=== PATIENT | female | born 1965 | race Caucasian/White ===

== ENCOUNTER 2018-01-18 16:37 | Emergency (ER) | payer OTHER ==
[2018-01-18 16:52] VITALS: RESP 18
[2018-01-18] MEDS ORDERED: ACETAMINOPHEN TAB 500 MG TAB PO STA (17:08)
--- NOTE | 2018-01-18 17:16 | ED ---
Lower Extremity Injury HPI - General Source: patient, RN notes reviewed Mode of arrival: wheelchair Limitations: no limitations <Juliet Hdz - Last Filed: 01/18/18 18:44> <Leslie Brown - Last Filed: 01/18/18 20:27> - General Chief Complaint: Extremity Injury, Lower Stated Complaint: lt knee/leg injury Time Seen by Provider: 01/18/18 17:00 - History of Present Illness Initial Comments: This is a 52-year-old female who presents to the emergency department with chief complaint of work-related left leg injury. Patient states that at 12:50 this afternoon she was helping a consumer at work onto the toilet. She states that a coworker had previously helped showered another consumer and the floor was still wet. She states that she slipped and landed on her left side, her full weight on her left leg. She states that she was initially unable to get up off the floor as her leg felt numb. She states that she was then able to crawl to the hallway and got up using a wheelchair. She states that she has been able to bear weight and ambulate but with difficulty. She complains of pain to the lateral left knee, lateral ankle and top of the foot. Denies any other injuries or trauma. Denies head, neck or back pain. Denies recent fevers or chills, chest pain or shortness of breath, abdominal pain, nausea or vomiting. (Juliet Hdz) - Related Data Allergies Allergy/AdvReac Type Severity Reaction Status Date / Time codeine Allergy Unknown Verified 01/18/18 16:47 latex Allergy Unknown Verified 01/18/18 16:47 lisinopril Allergy Unknown Verified 01/18/18 16:47 metronidazole [From Flagyl] Allergy Unknown Verified 01/18/18 16:47 Penicillins Allergy Unknown Verified 01/18/18 16:47 prednisone Allergy Unknown Verified 01/18/18 16:47 Tetracyclines Allergy Unknown Verified 01/18/18 16:47 Review of Systems ROS Other: All systems not noted in ROS Statement are negative. <Juliet Hdz - Last Filed: 01/18/18 18:44> ROS Other: All systems not noted in ROS Statement are negative. <Leslie Brown - Last Filed: 01/18/18 20:27> ROS Statement: Those systems with pertinent positive or pertinent negative responses have been documented in the HPI. Past Medical History Past Medical History: Diabetes Mellitus History of Any Multi-Drug Resistant Organisms: None Reported Past Surgical History: Adenoidectomy, Appendectomy, Hysterectomy, Tonsillectomy Additional Past Surgical History / Comment(s): rectal abscess with surgical repair Past Psychological History: No Psychological Hx Reported Smoking Status: Current every day smoker Past Alcohol Use History: None Reported Past Drug Use History: None Reported <Juliet Hdz - Last Filed: 01/18/18 18:44> General Exam Limitations: no limitations <Juliet Hdz - Last Filed: 01/18/18 18:44> <Leslie Brown - Last Filed: 01/18/18 20:27> - General Exam Comments Initial Comments: General: Awake and alert, well-developed; in no apparent distress. HEENT: Head atraumatic, normocephalic. Pupils are equal, round and reactive to light. Extraocular movements intact. Oropharynx moist without erythema or exudate. Neck: Supple. Normal ROM. Cardiovascular: Regular rate and rhythm. No murmurs, rubs or gallops. Chest symmetrical. Respiratory: Lungs clear to auscultation bilaterally. No wheezes, rales or rhonchi. Normal respiratory effort with no use of accessory muscles. Musculoskeletal: Normal range of motion of the left knee, left ankle and foot. There is contusion and small abrasion at the medial aspect of the left knee. Tenderness at the lateral joint line. No significant joint swelling. There is mild, diffuse soft tissue swelling of the left ankle with tenderness at the lateral malleolus. No medial malleolar tenderness. No tenderness on palpation of the lower leg. There is tenderness on palpation of the proximal dorsal left foot. Sensation is intact. Pedal pulses are 2+ equal and palpable bilaterally. Skin: [place], warm and dry. Neurological: Alert and oriented x3. CN II-XII grossly intact. Speech is fluent and answers are appropriate. No focal neuro deficits. Psychiatric: Normal mood and affect. No overt signs of depression or anxiety noted. (Juliet Hdz) Vital Signs 01/18/18 01/18/18 16:47 18:45 Temperature 98.4 F 98.6 F Pulse Rate 102 H 63 Respiratory 18 18 Rate Blood Pressure 143/90 168/76 O2 Sat by Pulse 100 98 Oximetry Procedures - Orthopedic Splinting/Casting Injury #1 Side: left Lower Extremity Injury Location: short leg, ankle Lower Extremity Immobilizer: posterior splint, stirrup splint, synthetic pre- padded splint <Juliet Hdz - Last Filed: 01/18/18 18:44> Medical Decision Making - Radiology Data Radiology results: report reviewed, image reviewed <Juliet Hdz - Last Filed: 01/18/18 18:44> <Leslie Brown - Last Filed: 01/18/18 20:27> - Medical Decision Making This is a 52-year-old female who presents to the emergency department with chief complaint of left lower extremity injury. Patient slipped on water and landed onto the side of her left leg at work earlier this afternoon at 12:50. Patient has been able to bear weight but ambulates with difficulty. Patient complains of pain to the left knee, left ankle and top of the left foot. X-ray of the left foot and left knee reveal no acute abnormalities. X-ray of the left ankle revealed a nondisplaced oblique fracture of the distal fibula. Short leg OCL posterior and ankle stirrup splints were placed and patient tolerated well without complication. She is neurovascularly intact. Patient declined any pain medication stronger than Tylenol or Motrin. Patient states that she does have a walker at home that she will use. Recommended non- weightbearing. Recommended following up with orthopedics within 1-2 days. Recommended rest, ice, elevation. Vital signs are stable and patient is in no acute distress. She will be discharged home at this time. All questions were answered. Patient is in agreement with plan and voices understanding. (Juliet Hdz) The patient was seen and evaluated independently by the PA. I was not asked to evaluate this patient. I did review the PA evaluation and management and agree with the treatment plan as documented. (Leslie Brown) - Radiology Data X-ray left foot impression: No acute abnormality of the left foot. X-ray left knee impression: Negative left knee exam. X-ray left ankle impression: Nondisplaced oblique fracture distal fibula. (Juliet Hdz) Disposition Is patient prescribed a controlled substance at d/c from ED?: No Time of Disposition: 18:48 <Juliet Hdz M - Last Filed: 01/18/18 18:44> <Leslie Brown P - Last Filed: 01/18/18 20:27> Clinical Impression: Fracture of distal end of left fibula, Knee contusion Disposition: HOME SELF-CARE Condition: Good Instructions: Ankle Fracture (ED), Knee Pain (ED) Additional Instructions: Please follow-up with Dr. Mccormack, [facility] within 1-2 days. Please remain non-weightbearing. Please rest, ice and elevate. Please follow up with primary care provider within 1-2 days. Return to emergency department if symptoms should worsen or any concerns arise. Referrals: Gab Nelson MD [Primary Care Provider] - 1-2 days Julio Mccormack MD [STAFF PHYSICIAN] - 1-2 days
--- NOTE | 2018-01-18 18:22 | XR ---
EXAMINATION TYPE: XR foot complete LT DATE OF EXAM: 01/18/2018 COMPARISON: NONE HISTORY: Pain and swelling TECHNIQUE: 3 views FINDINGS: Metatarsals appear intact. There are plantar and Achilles calcaneal spurs. I see no fractur e nor dislocation. IMPRESSION: No acute abnormality of the left foot.
--- NOTE | 2018-01-18 18:24 | XR ---
EXAMINATION TYPE: XR ankle complete LT DATE OF EXAM: 01/18/2018 COMPARISON: NONE HISTORY: Pain TECHNIQUE: 3 views FINDINGS: There is soft tissue swelling over the lateral malleolus. There is nondisplaced oblique fra cture of the distal fibula. Ankle mortise is anatomic. IMPRESSION: Nondisplaced oblique fracture distal fibula.
--- NOTE | 2018-01-18 18:24 | XR ---
EXAMINATION TYPE: XR knee complete LT DATE OF EXAM: 01/18/2018 COMPARISON: NONE HISTORY: Knee pain TECHNIQUE: 3 views FINDINGS: I see no fracture nor dislocation. Joint spaces are fairly normal. IMPRESSION: Negative left knee exam
[2018-01-18 19:12] VITALS: BP 168/76; PULSE 63; TEMP 98.6
== END 2018-01-18 19:00 | disposition home or self-care (01) ==
LOC: EC 16:37
DX: S82.832A Other fracture of upper and lower end of left fibula, initial encounter for closed fracture (principal); S80.02XA Contusion of left knee, initial encounter; F17.200 Nicotine dependence, unspecified, uncomplicated; Z88.0 Allergy status to penicillin; Z88.1 Allergy status to other antibiotic agents; Z88.5 Allergy status to narcotic agent; Z88.8 Allergy status to other drugs, medicaments and biological substances; Z91.040 Latex allergy status; W01.0XXA Fall on same level from slipping, tripping and stumbling without subsequent striking against object, initial encounter; Y93.89 Activity, other specified; Y92.69 Other specified industrial and construction area as the place of occurrence of the external cause; Y99.0 Civilian activity done for income or pay
CPT/HCPCS: 29515; 99283

== ENCOUNTER → 2018-10-20 | Day surgery (SDC) | payer OTHER ==
[2018-10-14 11:42] VITALS: BMI 34.7
--- NOTE | 2018-10-19 09:31 | HP ---
HISTORY AND PHYSICAL CHIEF COMPLAINT: Left knee pain. HISTORY OF PRESENT ILLNESS: The patient is a 53-year-old female who presents with left knee pain after initial injury January 18, 2018. She has had persistent pain along with giving way ever since. Currently she is off work. PAST MEDICAL HISTORY: Significant for type 2 diabetes, hypercholesterolemia, and hypertension. PAST SURGICAL HISTORY: Significant for hysterectomy, tonsillectomy and adenoidectomy. CURRENT MEDICATIONS: 1. Crestor. 2. Losartan. 3. Soliqua along with Ozempic. ALLERGIES: She has allergies to TETRACYCLINES, PENICILLIN, PREDNISONE, FLAGYL, LATEX, and CODEINE. FAMILY HISTORY: Significant for heart disease and stroke. SOCIAL HISTORY: Significant for 1 pack per day tobacco use. REVIEW OF SYSTEMS: Sixteen-point review of systems otherwise reviewed and is noncontributory. PHYSICAL EXAMINATION: On examination, the patient is approximately 5 feet 2 inches, 160 pounds of endomorphic habitus. HEENT exam is nonfocal. Neck is supple. She has painless passive motion of the left hip. Active motion left knee -10 to 100 degrees of flexion. She has mild effusion. She is tender about the lateral joint line. Collaterals are stable, Mildred's negative, Estela's elicits lateral pain. Her distal neurovascular exam appears intact in the left lower extremity. Previous MRI report left knee shows evidence of a bucket-handle tear of the lateral meniscus. IMPRESSION: 1. Internal derangement left knee with symptomatic lateral meniscal tear. 2. [id number] diabetes. RECOMMENDATIONS: I talked to the patient at length regarding her condition along with treatment options. At this point she is having persistent pain and mechanical symptoms that limit her. After a thorough discussion, she opts to proceed with surgery. We will plan to proceed with arthroscopic evaluation with probable partial lateral meniscectomy. Risks and benefits were discussed at length in layman's terms. We will likely perform that as an outpatient procedure. MMODL / IJN: [id number] /
[~2018-10-20] MED LIST: EPINEPHrine (PF) 1 ML in SODIUM CHLORIDE 0.9% IRRIGATIO 3,000 ML IRRIGATION ONE; GLYCOPYRROLATE 0.2 MG/ML 2 ML VIAL ONE; LACTATED RINGERS 1,000 ML IV ONE; LACTATED RINGERS 1,000 ML IV SCH; LIDOCAINE 1% 20 ML VIAL (10MG/ML) FOR IV START INTRADERMA ONE; LIDOCAINE 1% INJ 10MG/ML (20 ML MDV) ONE; MIDAZOLAM (PF) 2 MG/2 ML VIAL IV PRN; MIDAZOLAM 2 MG/2 ML VIAL ONE; NEOSTIGMINE 1 MG/ML 10 ML VIAL ONE; ONDANSETRON 4 MG/2 ML VIAL IVP ONE; PROPOFOL 10 MG/ML 20 ML VIAL IV ONE; ROCURONIUM BROMIDE 10 MG/ML 10 ML VIAL IV ONE; SCOPOLAMINE 1.5MG/72HR PATCH TRANSDERM ONE; SODIUM CHLORIDE 0.9% 100 ML with CLINDAMYCIN 600 MG IV ONE; SUCCINYLCHOLINE CHLORIDE 100 MG/5 ML SYR IV ONE; fentaNYL (PF) 50 MCG/ML 2 ML AMP ONE
[2018-10-20 12:20] LABS: Glucose,Whole Blood 142 mg/dL (75-99)
[2018-10-20] MEDS: fentaNYL (PF) 50 MCG/ML 2 ML AMP IV PRN ×2 (13:30→15:20)
--- NOTE | 2018-10-20 14:50 | P.OP ---
Date of Procedure: 10/20/18 Preoperative Diagnosis: Left knee bucket-handle lateral meniscal tear Postoperative Diagnosis: Same Procedure(s) Performed: Left knee arthroscopic partial lateral meniscectomy Anesthesia: KARMEN Surgeon: Julio Mccormack Estimated Blood Loss (ml): 10 Pathology: none sent Condition: stable Disposition: PACU Indications for Procedure: The patient's a 53-year-old female who previously injured her left knee at work and upon evaluation was noted to have a bucket handle tear of the lateral meniscus. A discussion of the risks and benefits of operative intervention was made with patient. She opted to proceed with surgery. There was a significant delay in performing the surgery because of medical issues in addition to her healing her previous fractures. Specific risks of the procedure to include infection, neurovascular injury, development of blood clots, possible incomplete resolution of symptoms, possible worsening symptoms and need for subsequent procedures was discussed. Informed consent was obtained. Operative Findings: As below Description of Procedure: The patient was brought to the operating room, and after induction of general anesthesia examined the left knee. Collaterals were stable, Mildred was nega tive, and posterior drawer was negative. The left lower extremity was prepped and draped in a normal fashion. A superior lateral portal was made through a 3 mm skin incision superior and lateral to the patella. This was used for outflow. A lateral portal was made through a 5 mm vertical skin incision lateral to the patella tendon above the joint line. Diagnostic arthroscopy was performed. On inspection of the medial compartment no significant meniscal or cartilage pathology was noted. On inspection of the notch, the anterior cruciate ligament appeared to be intact. On inspection of the lateral compartment a locked bucket-handle tear of the lateral meniscus was noted. I was not able to reduce this. This was removed with straight baskets and a motorized shaver. It was in the white-red junction. Grade 2 chondral changes were noted diffusely in the lateral compartment. On inspection of the patellofemoral articulation minimal degenerative changes were noted. The gutters were clear debris. The knee was then thoroughly irrigated. The portals were closed with Steri-Strips. A sterile dressing was applied in addition to a compression stocking. The patient was awoken from general anesthesia and transferred to recovery room in good condition. Blood loss was estimated at 10 mL. No complications were incurred.
[2018-10-20 15:03] VITALS: TEMP 97
[2018-10-20 15:11] LABS: Glucose,Whole Blood 171 mg/dL (75-99)
[2018-10-20 16:26] VITALS: BP 128/84; PULSE 105; RESP 18
== END | disposition home or self-care (01) ==
LOC: OR 11:45
PROVIDERS: ATTEND Orthopaedic Surgery
DX: S83.252A Bucket-handle tear of lateral meniscus, current injury, left knee, initial encounter (principal); X58.XXXA Exposure to other specified factors, initial encounter; E11.9 Type 2 diabetes mellitus without complications; L28.0 Lichen simplex chronicus; E78.2 Mixed hyperlipidemia; I10 Essential (primary) hypertension; G47.33 Obstructive sleep apnea (adult) (pediatric); K21.9 Gastro-esophageal reflux disease without esophagitis; B35.4 Tinea corporis; L40.9 Psoriasis, unspecified; E78.00 Pure hypercholesterolemia, unspecified; J30.9 Allergic rhinitis, unspecified; Z79.4 Long term (current) use of insulin; Z79.899 Other long term (current) drug therapy; Z99.89 Dependence on other enabling machines and devices; F17.210 Nicotine dependence, cigarettes, uncomplicated; Z90.49 Acquired absence of other specified parts of digestive tract; Z90.710 Acquired absence of both cervix and uterus; Z90.722 Acquired absence of ovaries, bilateral; Z82.49 Family history of ischemic heart disease and other diseases of the circulatory system; Z82.3 Family history of stroke; Z80.3 Family history of malignant neoplasm of breast; Z88.5 Allergy status to narcotic agent; Z88.0 Allergy status to penicillin; Z88.2 Allergy status to sulfonamides; Z88.8 Allergy status to other drugs, medicaments and biological substances; Z88.1 Allergy status to other antibiotic agents; Z91.040 Latex allergy status
CPT/HCPCS: 29881; J2250; J2710; J2405; J0171; J2001; J3010; J0330; J2704